=== PATIENT | female | born 1940 | race Caucasian/White ===

== ENCOUNTER 2016-10-29 12:03 | Outpatient (CLI) | payer MEDICARE, OTHER | END 2016-10-29 12:04 | disposition home or self-care (01) | DX: R53.83 Other fatigue (principal); E03.9 Hypothyroidism, unspecified; Z79.899 Other long term (current) drug therapy ==

== ENCOUNTER 2017-01-31 16:18 | Outpatient (CLI) | payer MEDICARE, OTHER | END 2017-01-31 16:19 | disposition home or self-care (01) | DX: M19.071 Primary osteoarthritis, right ankle and foot (principal); M20.11 Hallux valgus (acquired), right foot ==

== ENCOUNTER 2017-05-21 16:40 | Outpatient (CLI) | payer MEDICARE, OTHER ==
[2017-05-21 18:55] LABS: HEMOGLOBIN A1C 0.48 g/dL
== END 2017-05-21 16:41 | disposition home or self-care (01) ==
LOC: LAB.R 16:40
PROVIDERS: ATTEND Internal Medicine
DX: E11.9 Type 2 diabetes mellitus without complications (principal); Z79.899 Other long term (current) drug therapy
CPT/HCPCS: 83036

== ENCOUNTER 2017-06-10 13:55 | Outpatient (CLI) | payer MEDICARE, OTHER ==
[2017-06-10 18:46] LABS: BILIRUBIN,URINE NEGATIVE (NEGATIVE)
== END 2017-06-10 13:56 | disposition home or self-care (01) ==
LOC: LAB.N 13:55
PROVIDERS: ATTEND Internal Medicine
DX: R10.9 Unspecified abdominal pain (principal); R35.0 Frequency of micturition
CPT/HCPCS: 81003

== ENCOUNTER 2017-08-05 08:00 | Outpatient (CLI) | payer MEDICARE, OTHER ==
[2017-08-05 13:54] LABS: BASOPHILS # (AUTO) 0.1 10^3/uL (0.0-0.1); BASOPHILS % (AUTO) 0.9 %; EOSINOPHILS # (AUTO) 0.3 10^3/uL (0.0-0.7); HCT - HEMATOCRIT 33.3 % (37.0-47.0); HGB - HEMOGLOBIN 11.8 g/dL (12.0-16.0); LYMPHOCYTES # (AUTO) 1.9 10^3/uL (1.5-3.5); LYMPHOCYTES % (AUTO) 29.2 %; MEAN CORPUSCULAR HEMOGLOBIN 30.9 pg (27.0-31.0); MEAN CORPUSCULAR HGB CONC 35.3 g/dL (32.0-36.0); MEAN CORPUSCULAR VOLUME 87.6 fL (81.0-99.0); MEAN PLATELET VOLUME 7.6 fL (7.9-10.8); MONOCYTES # (AUTO) 0.5 10^3/uL (0.0-1.0); MONOCYTES % (AUTO) 8.2 %; NEUTROPHILS # (AUTO) 3.7 10^3/uL (1.5-6.6); NEUTROPHILS % (AUTO) 56.7 %; RED BLOOD COUNT 3.81 10^6/uL (4.20-5.40); RED CELL DISTRIBUTION WIDTH 13.2 % (12.0-15.0); UNCORRECTED WHITE BLOOD COUNT 6.4 x10^3/uL; WHITE BLOOD COUNT 6.4 x10^3/uL (4.8-10.8)
[2017-08-05 14:32] LABS: ALBUMIN/GLOBULIN RATIO 1.4 (1.0-2.2); BILIRUBIN,TOTAL 0.4 mg/dL (0.2-1.0); BUN - BLOOD UREA NITROGEN 15 mg/dL (6-20); CALCIUM 9.3 mg/dL (8.5-10.3); CARBON DIOXIDE - CO2 29 mmol/L (21-32); CHLORIDE 92 mmol/L (101-111); CHOL/HDL RATIO 3.4 (<4.4); CHOLESTEROL 175 mg/dL; CREATININE 0.9 mg/dL (0.4-1.0); GFR - MDRD 61 (>89); GLUCOSE 103 mg/dL (70-100); HDL CHOLESTEROL 52 mg/dL; LDL/HDL RATIO 2.1 (<4.4); SODIUM 129 mmol/L (135-145); TOTAL PROTEIN 7.1 g/dL (6.7-8.2); TRIGLYCERIDES 68 mg/dL; VLDL CHOLESTEROL 14 mg/dL
[2017-08-05 14:47] LABS: HEMOGLOBIN A1C 0.38 g/dL
== END 2017-08-05 08:01 | disposition home or self-care (01) ==
LOC: LAB.N 08:00
PROVIDERS: ATTEND Physician Assistant Medical
DX: E11.9 Type 2 diabetes mellitus without complications (principal); D53.9 Nutritional anemia, unspecified; M15.9 Polyosteoarthritis, unspecified; E78.2 Mixed hyperlipidemia; E03.9 Hypothyroidism, unspecified; Z79.899 Other long term (current) drug therapy
CPT/HCPCS: 36415; 80053; 80061; 83036; 84443; 85025

== ENCOUNTER 2017-11-28 13:51 | Outpatient (CLI) | payer MEDICARE, OTHER ==
--- NOTE | 2017-11-29 13:32 | DEXA Report ---
DEXA: 11/28/2017 CLINICAL INDICATION: Postmenopausal. TECHNIQUE: Dual energy x-ray absorptiometry (DXA) was performed on a Deep Driver system. Regions measured are the AP spine, femoral neck, and, if needed, forearm. COMPARISON: None. In accordance with the International Society for Clinical Densitometry (ISCD) guidelines, data from previous exams may be reanalyzed using current recommendations and techniques. This is done to allow a more accurate basis for comparison with the current study. FINDINGS The data for the lumbar spine is as follows: REGION BMD (g/cm/cm) T-SCORE Z-SCORE L1 1.181 0.4 1.5 L2 1.226 0.2 1.3 L3 1.329 1.1 2.1 L4 1.389 1.6 2.6 L1-L4 TOTAL 1.287 0.9 2.0 NOTE: All evaluable vertebrae are used for classification. The data for the right hip is as follows: REGION BMD (g/cm/cm) T-SCORE Z-SCORE Neck 0.588 -3.2 -1.7 TOTAL 0.598 -3.2 -1.9 NOTE: The femoral neck or total proximal femur, whichever is lowest, is used for classification. IMPRESSION 1. THE WHO CLASSIFICATION BASED ON THE INTERNATIONAL REFERENCE STANDARD IS OSTEOPOROSIS. THE FRACTURE RISK IS HIGH. 2. LEFT HIP EVALUATION NOT PERFORMED SECONDARY TO LEFT FEMORAL STEVEN. RECOMMENDATION: Patients with diagnosis of osteoporosis or osteopenia should have regular bone mineral density assessment. For those eligible for Medicare, routine testing is allowed once every 2 years. Testing frequency can be increased for patients who have rapidly progressing disease or for those who are receiving medical therapy to restore bone mass. COMMENT: World Health Organization (WHO) definitions for osteoporosis and osteopenia: NORMAL BMD: T-score at 1.0 or higher, fracture risk is low. OSTEOPENIA BMD: T-score between 1.0 and -2.5, fracture risk is increased. OSTEOPOROSIS BMD: T-score at 2.5 or lower, fracture risk high. National Osteoporosis Foundation recommends: 1. Obtain adequate dietary calcium (at least 1200 mg per day) and vitamin D (400 -800 international units per day). 2. Participate, as appropriate, in regular weightbearing and muscle- strengthening exercise. 3. Avoid tobacco use and reduce alcohol and caffeine intake. 4. For more detailed information see the website at www.NOF.org. TD: 11/28/2017 18:36 MTDDoreen
== END 2017-11-28 13:52 | disposition home or self-care (01) ==
LOC: DI 13:51
PROVIDERS: ATTEND Physician Assistant Medical
DX: M81.0 Age-related osteoporosis without current pathological fracture (principal)
CPT/HCPCS: 77080

== ENCOUNTER 2017-12-10 18:08 | Emergency (ER) | payer MEDICARE, OTHER ==
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
[2017-12-10] MEDS ORDERED: ACETAMINOPHEN 325 MG TABLET PO STA (18:54)
--- NOTE | 2017-12-10 20:09 | CT Preliminary Report ---
Exam: CT HEAD W/O IMPRESSION: Generalized age-related cortical atrophic changes without evidence of acute intracranial abnormality. [facility] SITE ID: [id number]
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
[2017-12-10 20:33] VITALS: BP 106/56
== END 2017-12-10 20:35 | disposition home or self-care (01) ==
LOC: ED 18:08
DX: S00.03XA Contusion of scalp, initial encounter (principal); W19.XXXA Unspecified fall, initial encounter; I25.10 Atherosclerotic heart disease of native coronary artery without angina pectoris; I25.2 Old myocardial infarction; I10 Essential (primary) hypertension; E11.9 Type 2 diabetes mellitus without complications; Z95.1 Presence of aortocoronary bypass graft; Z95.5 Presence of coronary angioplasty implant and graft
CPT/HCPCS: 70450; 99283

== ENCOUNTER 2017-12-23 15:06 | Outpatient (CLI) | payer MEDICARE, OTHER ==
[2017-12-23 18:33] LABS: BASOPHILS # (AUTO) 0.1 10^3/uL (0.0-0.1); EOSINOPHILS # (AUTO) 0.2 10^3/uL (0.0-0.7); HGB - HEMOGLOBIN 11.8 g/dL (12.0-16.0); LYMPHOCYTES % (AUTO) 30.7 %; MEAN CORPUSCULAR HEMOGLOBIN 29.7 pg (27.0-31.0); MEAN CORPUSCULAR HGB CONC 33.8 g/dL (32.0-36.0); MEAN CORPUSCULAR VOLUME 87.8 fL (81.0-99.0); MEAN PLATELET VOLUME 7.9 fL (7.9-10.8); MONOCYTES # (AUTO) 0.5 10^3/uL (0.0-1.0); MONOCYTES % (AUTO) 7.6 %; NEUTROPHILS # (AUTO) 3.8 10^3/uL (1.5-6.6); NEUTROPHILS % (AUTO) 57.7 %; PLT - PLATELET COUNT 293 10^3/uL (130-450); RED BLOOD COUNT 3.99 10^6/uL (4.20-5.40); RED CELL DISTRIBUTION WIDTH 12.9 % (12.0-15.0); WHITE BLOOD COUNT 6.6 x10^3/uL (4.8-10.8)
[2017-12-23 18:43] LABS: ALBUMIN 3.9 g/dL (3.2-5.5); ALBUMIN/GLOBULIN RATIO 1.2 (1.0-2.2); BILIRUBIN,TOTAL 0.5 mg/dL (0.2-1.0); CALCIUM 9.1 mg/dL (8.5-10.3); CREATININE 0.9 mg/dL (0.4-1.0); TOTAL PROTEIN 7.2 g/dL (6.7-8.2)
[2017-12-23 19:01] LABS: THYROID STIMULATING HORMONE 2.57 uIU/mL (0.34-5.60)
[2017-12-23 19:04] LABS: HB2 TOTAL 12.5 g/dL; HEMOGLOBIN A1C 0.39 g/dL
[2017-12-23 19:07] LABS: FERRITIN 84.2 ng/mL (11.0-306.8)
== END 2017-12-23 15:07 | disposition home or self-care (01) ==
LOC: LAB.R 15:06
PROVIDERS: ATTEND Physician Assistant Medical
DX: E11.9 Type 2 diabetes mellitus without complications (principal); D53.9 Nutritional anemia, unspecified; R41.89 Other symptoms and signs involving cognitive functions and awareness; L65.9 Nonscarring hair loss, unspecified; Z79.899 Other long term (current) drug therapy
CPT/HCPCS: 80053; 82607; 82728; 83036; 84443; 85025

== ENCOUNTER 2018-03-04 11:23 | Outpatient (CLI) | payer MEDICARE, OTHER ==
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
== END 2018-03-04 11:24 | disposition home or self-care (01) ==
LOC: DI 11:23
PROVIDERS: ATTEND Internal Medicine
DX: R05 Cough (principal)
CPT/HCPCS: 71046

== ENCOUNTER 2018-03-24 08:00 | Outpatient (CLI) | payer MEDICARE, OTHER ==
[2018-03-24 13:06] LABS: ALBUMIN 3.7 g/dL (3.2-5.5); ALBUMIN/GLOBULIN RATIO 1.2 (1.0-2.2); BILIRUBIN,TOTAL 0.4 mg/dL (0.2-1.0); CALCIUM 8.8 mg/dL (8.5-10.3); CREATININE 0.9 mg/dL (0.4-1.0); TOTAL PROTEIN 6.8 g/dL (6.7-8.2)
== END 2018-03-24 08:01 | disposition home or self-care (01) ==
LOC: LAB.R 08:00
PROVIDERS: ATTEND Physician Assistant Medical
DX: E87.1 Hypo-osmolality and hyponatremia (principal)
CPT/HCPCS: 80053

== ENCOUNTER 2018-04-03 16:02 | Outpatient (CLI) | payer MEDICARE, OTHER ==
[2018-04-03 12:53] LABS: CALCIUM 8.9 mg/dL (8.5-10.3); CREATININE 0.9 mg/dL (0.4-1.0)
== END 2018-04-03 23:59 | disposition home or self-care (01) ==
LOC: LAB.N 16:02
PROVIDERS: ATTEND Physician Assistant Medical
DX: E87.1 Hypo-osmolality and hyponatremia (principal)
CPT/HCPCS: 36415; 80048

== ENCOUNTER 2018-07-02 18:38 | Outpatient (CLI) | payer MEDICARE, OTHER | END 2018-07-02 18:39 | disposition short-term general hospital (02) | LOC: EMS 18:38 | PROVIDERS: ATTEND Surgery | DX: Z74.01 Bed confinement status (principal); Z74.2 Need for assistance at home and no other household member able to render care | CPT/HCPCS: A0425; A0429 ==

== ENCOUNTER 2018-09-12 09:16 | Outpatient (CLI) | payer MEDICARE, OTHER ==
[2018-09-12 13:30] LABS: HB2 TOTAL 13.6 g/dL; HEMOGLOBIN A1C 0.47 g/dL; HEMOGLOBIN A1C % 5.3 % (4.6-6.2)
[2018-09-12 13:35] LABS: ALBUMIN/GLOBULIN RATIO 1.1 (1.0-2.2); ALKALINE PHOSPHATASE 66 IU/L (42-121); ALT ALANINE AMINOTRANSFERASE 15 IU/L (10-60); AST ASPARTATE AMINOTRANSFERASE 21 IU/L (10-42); BILIRUBIN,TOTAL 0.6 mg/dL (0.2-1.0); BUN - BLOOD UREA NITROGEN 11 mg/dL (6-20); CALCIUM 9.6 mg/dL (8.5-10.3); CARBON DIOXIDE - CO2 30 mmol/L (21-32); CHLORIDE 98 mmol/L (101-111); CHOL/HDL RATIO 3.5 (<4.4); CHOLESTEROL 172 mg/dL; CREATININE 0.9 mg/dL (0.4-1.0); GFR - MDRD 61 (>89); GLUCOSE 107 mg/dL (70-100); HDL CHOLESTEROL 49 mg/dL; LDL CHOLESTEROL,CALCULATED 110 mg/dL; LDL/HDL RATIO 2.2 (<4.4); SODIUM 137 mmol/L (135-145); TOTAL PROTEIN 7.5 g/dL (6.7-8.2); VLDL CHOLESTEROL 13 mg/dL
[2018-09-12 13:38] LABS: BASOPHILS % (AUTO) 0.4 %; EOSINOPHILS # (AUTO) 0.2 10^3/uL (0.0-0.7); EOSINOPHILS % (AUTO) 4.1 %; HGB - HEMOGLOBIN 12.7 g/dL (12.0-16.0); LYMPHOCYTES # (AUTO) 2.3 10^3/uL (1.5-3.5); LYMPHOCYTES % (AUTO) 38.9 %; MEAN CORPUSCULAR HEMOGLOBIN 30.7 pg (27.0-31.0); MEAN CORPUSCULAR HGB CONC 35.1 g/dL (32.0-36.0); MEAN CORPUSCULAR VOLUME 87.5 fL (81.0-99.0); MEAN PLATELET VOLUME 7.8 fL (7.9-10.8); MONOCYTES # (AUTO) 0.4 10^3/uL (0.0-1.0); MONOCYTES % (AUTO) 7.3 %; NEUTROPHILS # (AUTO) 2.9 10^3/uL (1.5-6.6); NEUTROPHILS % (AUTO) 49.3 %; PLT - PLATELET COUNT 290 10^3/uL (130-450); RED BLOOD COUNT 4.14 10^6/uL (4.20-5.40); RED CELL DISTRIBUTION WIDTH 13.2 % (12.0-15.0); WHITE BLOOD COUNT 5.8 x10^3/uL (4.8-10.8)
== END 2018-09-12 09:17 | disposition home or self-care (01) ==
LOC: LAB.N 09:16
PROVIDERS: ATTEND Physician Assistant Medical
DX: M81.0 Age-related osteoporosis without current pathological fracture (principal); Z79.899 Other long term (current) drug therapy; E03.9 Hypothyroidism, unspecified; E78.2 Mixed hyperlipidemia; E11.9 Type 2 diabetes mellitus without complications; D53.9 Nutritional anemia, unspecified; F41.8 Other specified anxiety disorders
CPT/HCPCS: 36415; 80053; 80061; 82306; 83036; 83721; 84443; 85025

== ENCOUNTER 2018-10-27 14:34 | Outpatient (CLI) | payer OTHER, MEDICARE | END 2018-10-27 14:35 | disposition critical access hospital (66) | LOC: EMS 14:34 | PROVIDERS: ATTEND Surgery | DX: T14.90XA Injury, unspecified, initial encounter (principal); V43.93XA Unspecified car occupant injured in collision with pick-up truck in traffic accident, initial encounter; Y92.413 State road as the place of occurrence of the external cause | CPT/HCPCS: A0425; A0429 ==

== ENCOUNTER 2018-10-27 14:45 | Emergency (ER) | payer OTHER, MEDICARE ==
[2018-10-27] MEDS ORDERED: MORPHINE 2 MG/ML CARPUJECT IVP STA ×2 (15:03→16:29)
[2018-10-27] MEDS ORDERED: SODIUM CHLORIDE 0.9% 1,000 ML IV ONE (15:03)
[2018-10-27] MEDS ORDERED: ONDANSETRON 4 MG/2 ML VIAL IVP STA ×2 (15:03→16:35)
[2018-10-27 15:11] LABS: BASOPHILS # (AUTO) 0.1 10^3/uL (0.0-0.1); BASOPHILS % (AUTO) 0.9 %; EOSINOPHILS # (AUTO) 0.4 10^3/uL (0.0-0.7); EOSINOPHILS % (AUTO) 5.4 %; HGB - HEMOGLOBIN 12.9 g/dL (12.0-16.0); LYMPHOCYTES # (AUTO) 2.4 10^3/uL (1.5-3.5); MEAN CORPUSCULAR HEMOGLOBIN 30.7 pg (27.0-31.0); MEAN CORPUSCULAR HGB CONC 35.2 g/dL (32.0-36.0); MEAN CORPUSCULAR VOLUME 87.3 fL (81.0-99.0); MEAN PLATELET VOLUME 7.3 fL (7.9-10.8); MONOCYTES # (AUTO) 0.4 10^3/uL (0.0-1.0); MONOCYTES % (AUTO) 6.4 %; NEUTROPHILS # (AUTO) 3.6 10^3/uL (1.5-6.6); NEUTROPHILS % (AUTO) 52.3 %; PLT - PLATELET COUNT 263 10^3/uL (130-450); RED BLOOD COUNT 4.22 10^6/uL (4.20-5.40); RED CELL DISTRIBUTION WIDTH 12.9 % (12.0-15.0)
[2018-10-27 15:18] LABS: ALBUMIN 4.1 g/dL (3.2-5.5); ALBUMIN/GLOBULIN RATIO 1.2 (1.0-2.2); BILIRUBIN,TOTAL 0.4 mg/dL (0.2-1.0); CREATININE 0.9 mg/dL (0.4-1.0); TOTAL PROTEIN 7.4 g/dL (6.7-8.2)
[2018-10-27 15:22] LABS: INR 1.2 (0.8-1.2); PT - PROTHROMBIN TIME 13.1 secs (9.9-12.6)
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
[2018-10-27] MEDS ORDERED: TRANEXAMIC ACID 1,000 MG in SODIUM CHLORIDE 0.9% 100ML 100 ML IV STA (16:12)
[2018-10-27] MEDS ORDERED: ACETAMINOPHEN 1,000 MG/100 ML 100 ML IV STA (16:29)
[2018-10-27 17:18] VITALS: BP 122/68
[2018-10-27 17:30] LABS: BILIRUBIN,URINE NEGATIVE (NEGATIVE); GLUCOSE, URINE (UA) NEGATIVE (NEGATIVE); KETONES,URINE (UA) NEGATIVE (NEGATIVE); LEUKOCYTE ESTERASE, URINE NEGATIVE (NEGATIVE); NITRITE,URINE NEGATIVE (NEGATIVE); OCCULT BLOOD,URINE NEGATIVE (NEGATIVE); PROTEIN,URINE NEGATIVE (NEGATIVE); UROBILINOGEN,URINE 0.2 (NORMAL) E.U./dL (NORMAL)
[2018-10-27 17:31] LABS: CLARITY,URINE CLEAR (CLEAR)
== END 2018-10-27 17:10 | disposition short-term general hospital (02) ==
LOC: EDUNIT# → ED 14:45
DX: S27.892A Contusion of other specified intrathoracic organs, initial encounter (principal); S80.01XA Contusion of right knee, initial encounter; V43.62XA Car passenger injured in collision with other type car in traffic accident, initial encounter; R09.02 Hypoxemia; I45.10 Unspecified right bundle-branch block; I49.3 Ventricular premature depolarization; I10 Essential (primary) hypertension; I25.10 Atherosclerotic heart disease of native coronary artery without angina pectoris; I25.2 Old myocardial infarction; E11.9 Type 2 diabetes mellitus without complications; Z95.1 Presence of aortocoronary bypass graft; Z95.5 Presence of coronary angioplasty implant and graft; Z79.02 Long term (current) use of antithrombotics/antiplatelets
CPT/HCPCS: 36415; 51702; 70450; 71250; 72125; 74176; 80053; 81003; 83690; 84484; 85025; 85610; 85730; 86850; 86900; 86901; 93005; 96365; 96368; 96375; 96376; 99284; 99285; J0131; 81001; 87086

== ENCOUNTER 2019-01-01 20:31 | Outpatient (CLI) | payer MEDICARE, OTHER | END 2019-01-01 20:32 | disposition critical access hospital (66) | LOC: EMS 20:31 | PROVIDERS: ATTEND Surgery | DX: R51 Headache (principal); W06.XXXA Fall from bed, initial encounter; Y92.003 Bedroom of unspecified non-institutional (private) residence as the place of occurrence of the external cause | CPT/HCPCS: A0425; A0429 ==

== ENCOUNTER 2019-01-01 20:58 | Emergency (ER) | payer MEDICARE, OTHER ==
--- NOTE | 2019-01-01 21:13 | ED Physician Documentation ---
PD HPI HEAD INJURY - Stated complaint Stated Complaint: GLF- HIT HEAD - Chief complaint Chief Complaint: Trauma Hd/Nk - History obtained from History obtained from: Patient, Family, EMS - History of Present Illness Mechanism of head injury: Fell Where head injury occurred: Home Timing - onset: Today Location of injury: Right Quality of pain: Other (none) Associated symptoms: No: LOC, AMS, Amnesia, Nausea / vomiting, Neck pain, Paresthesias, Seizures, Ear drainage, Nasal drainage Symptoms improve with: Rest Symptoms worsen with: Palpation Contributing factors: Anticoagulated (plavix) Similar symptoms before: Has not had sx before Recently seen: Admitted - Additional information Additional information: 78-year-old female was at home got up to use her wheeled walker and bumped into the door on her way into the bedroom lock the brakes and when she attempted to move the walker she fell to the side and struck the right side of her head. She did not have any loss of consciousness she denies any neck pain she denies any specific symptoms. She is on Plavix and her called 911to have her transported to hospital for evaluation. The patient states that she has been sick with a cough and congestion this past week that is now improved and her symptoms are nearly resolved. Review of Systems Constitutional: denies: Fever, Chills Eyes: denies: Decreased vision Ears: denies: Ear pain Nose: reports: Rhinorrhea / runny nose, Congestion Throat: denies: Sore throat Cardiac: denies: Chest pain / pressure, Palpitations Respiratory: reports: Cough. denies: Dyspnea GI: denies: Nausea, Vomiting : denies: Dysuria, Frequency Skin: denies: Rash Musculoskeletal: denies: Neck pain, Back pain, Extremity pain Neurologic: reports: Head injury. denies: Generalized weakness, Focal weakness, Numbness, Difficulty speaking, Near syncope, Syncope, Seizure, Confused, Altered mental status, Headache, LOC PD PAST MEDICAL HISTORY - Past Medical History Cardiovascular: Hypertension, Coronary artery disease, [place] Respiratory: None Neuro: None Endocrine/Autoimmune: Type 2 diabetes GI: None VOCATIONAL SERVICES SPECIALIST: None : None HEENT: None Psych: Anxiety Musculoskeletal: None Derm: None - Past Surgical History Past Surgical History: Yes General: Appendectomy Ortho: Other Cardiovascular: CABG, Coronary stent - Present Medications Home Medications: Ambulatory Orders Medication Instructions Recorded Confirmed Amlodipine Besylate [Norvasc] 10 mg PO DAILY 02/24/16 02/24/16 Atenolol 25 mg PO BID 02/24/16 02/24/16 Cetirizine [ZyrTEC] 10 mg PO DAILY 02/24/16 02/24/16 Clopidogrel [Plavix] 75 mg PO DAILY 02/24/16 02/24/16 Furosemide [Lasix] 40 mg PO DAILY 02/24/16 02/24/16 Isosorbide Mononitrate ER [Imdur] 60 mg PO DAILY 02/24/16 10/27/18 Levothyroxine [Synthroid] 100 mcg PO DAILY 02/24/16 10/27/18 Morphine Sulfate [Ms Contin] 60 mg PO DAILY 02/24/16 02/24/16 Pantoprazole [Protonix] 40 mg PO DAILY 02/24/16 10/27/18 Paroxetine HCl [Paxil] 40 mg PO DAILY 02/24/16 10/27/18 Potassium Chloride 20 meq PO DAILY 02/24/16 02/24/16 Pravastatin [Pravachol] 10 mg PO DAILY 02/24/16 02/24/16 diazePAM [Diazepam] 5 mg PO DAILY 02/24/16 02/24/16 - Allergies Allergies/Adverse Reactions: Allergies Allergy/AdvReac Type Severity Reaction Status Date / Time aspirin Allergy Unknown Verified 01/01/19 21:12 cephalexin monohydrate * Allergy Unknown Verified 01/01/19 21:12 [From Keflex] codeine Allergy Unknown Verified 01/01/19 21:12 diphenhydramine HCl * Allergy Unknown Verified 01/01/19 21:12 [From Benadryl] duloxetine HCl * Allergy Unknown Verified 01/01/19 21:12 [From Cymbalta] ibuprofen Allergy Unknown Verified 01/01/19 21:12 naproxen [From Naprosyn] Allergy Unknown Verified 01/01/19 21:12 nitrofurantoin Allergy Unknown Verified 01/01/19 21:12 macrocrystalline * [From Macrodantin] Penicillins Allergy Unknown Verified 01/01/19 21:12 povidone-iodine Allergy Unknown Verified 01/01/19 21:12 [From Betadine] soap [From Betadine] Allergy Unknown Verified 01/01/19 21:12 sulfite Allergy Unknown Verified 01/01/19 21:12 contrast dye Allergy Unknown Uncoded 01/01/19 21:12 - Social History Does the pt smoke?: No Smoking Status: Never smoker Does the pt drink ETOH?: No Does the pt have substance abuse?: No - Immunizations Immunizations are current?: No Immunizations: TDAP >10years/unknown - POLST Patient has POLST: No PD ED PE NORMAL - Vitals Vital signs reviewed: Yes (hypertensive mild diastolic ) - General General: Alert and oriented X 3, No acute distress, Well developed/nourished - HEENT HEENT: Atraumatic, PERRL, EOMI, Ears normal, Moist mucous membranes, Pharynx benign, Dentition benign, Other (There is a non-tender bump on the right paraietal/frontal area ) - Cardiac Cardiac: RRR, No murmur - Respiratory Respiratory: No respiratory distress, Clear bilaterally - Abdomen Abdomen: Soft, Non tender - Back Back: No CVA TTP, No spinal TTP - Derm Derm: Normal color, Warm and dry, No rash - Extremities Extremities: No deformity, No edema - Neuro Neuro: Alert and oriented X 3, recruiter account manager 2-12 intact, No motor deficit, No sensory deficit, Normal speech Eye Opening: Spontaneous Motor: Obeys Commands Verbal: Oriented GCS Score: 15 - Psych Psych: Normal mood, Normal affect Results - Vitals Vitals: Vital Signs - 24 hr 01/01/19 01/01/19 20:59 22:11 Temperature 36.8 C Heart Rate 70 57 L Respiratory 18 18 Rate Blood Pressure 113/96 H 107/57 L O2 Saturation 95 97 Oxygen O2 Source Room air - Rads (name of study) CT head without Radiology: Prelim report reviewed (Impression: Generalized age-related cortical atrophic changes without evidence of acute intracranial abnormality.), EMP read indepedently, See rad report PD MEDICAL DECISION MAKING - ED course Complexity details: reviewed results, re-evaluated patient, considered differential, d/w patient, d/w family ED course: 78-year-old female on Plavix has fallen in her home a mechanical fall with malpositioning of her walker this was witnessed by her she did not have a syncopal episode or lose consciousness. CT scan of her head is obtained without evidence of hemorrhage. Patient is discharged to home. Departure - Departure Disposition: 01 Home, Self Care Clinical Impression: Scalp contusion Qualifiers: Encounter type: initial encounter Qualified Code(s): S00.03XA - Contusion of scalp, initial encounter Instructions: ED Head Injury Closed Follow-Up: Javon Metzger MD [Primary Care Provider] -
--- NOTE | 2019-01-01 21:47 | CT Report ---
Reason: fall head injury anticoagulation Procedure Date: 01/01/2019 Accession Number: [id number] / [id number] Procedure: CT - HEAD WO CPT Code: FULL RESULT: EXAM: CT HEAD EXAM DATE: 01/01/2019 09:30 PM. CLINICAL HISTORY: Fall head injury anticoagulation. COMPARISON: CERVICAL SPINE W/O 10/27/2018 3:05 PM HEAD W/O 10/27/2018 3:05 PM. TECHNIQUE: Multiaxial CT images were obtained from the foramen magnum to the vertex. Reformats: Sagittal and coronal. IV contrast: None. In accordance with CT protocol optimization, one or more of the following dose reduction techniques were utilized for this exam: automated exposure control, adjustment of mA and/or KV based on patient size, or use of iterative reconstructive technique. FINDINGS: Parenchyma: No intraparenchymal hemorrhage. No evidence of mass, midline shift, or CT findings of acute infarction. Andrade-white differentiation is distinct. Diffuse chronic microangiopathic white matter changes are evident. Extraaxial Spaces: Normal for age. No subdural or epidural collections identified. Ventricles: The ventricles and cortical sulci are enlarged, consistent with age-related tissue loss. Sinuses and orbits: Imaged paranasal sinuses, orbits, and mastoids show no significant abnormality. Bones: No evidence of fracture or calvarial defect. Other: None. IMPRESSION: Generalized age-related cortical atrophic changes without evidence of acute intracranial abnormality. RADIA
[2019-01-01 22:12] VITALS: BP 107/57
== END 2019-01-01 22:26 | disposition home or self-care (01) ==
LOC: EDUNIT# → ED 20:58
DX: S00.03XA Contusion of scalp, initial encounter (principal); W18.30XA Fall on same level, unspecified, initial encounter; W22.8XXA Striking against or struck by other objects, initial encounter; Y92.009 Unspecified place in unspecified non-institutional (private) residence as the place of occurrence of the external cause; I10 Essential (primary) hypertension; I25.10 Atherosclerotic heart disease of native coronary artery without angina pectoris; I25.2 Old myocardial infarction; E11.9 Type 2 diabetes mellitus without complications; Z95.1 Presence of aortocoronary bypass graft; Z95.5 Presence of coronary angioplasty implant and graft
CPT/HCPCS: 70450; 99283

== ENCOUNTER 2020-11-13 17:59 | Outpatient (CLI) | payer MEDICARE, OTHER | END 2020-11-13 18:00 | disposition EMS.NT | LOC: EMS 17:59 | PROVIDERS: ATTEND Surgery | DX: K59.00 Constipation, unspecified (principal) ==

== ENCOUNTER 2021-07-07 11:59 | Emergency (ER) | payer MEDICARE, OTHER ==
--- NOTE | 2021-07-07 12:23 | ED Physician Documentation ---
PD HPI NVD - Stated complaint Stated Complaint: N/V/POSSIBLE WITHDRAWL - History obtained from History obtained from: Patient PD PAST MEDICAL HISTORY - Past Medical History Cardiovascular: Hypertension, Coronary artery disease, [place] Respiratory: None Neuro: None Endocrine/Autoimmune: Type 2 diabetes GI: None PROGRAM SUPPORT CLERK: None : None HEENT: None Psych: Anxiety Musculoskeletal: None Derm: None - Past Surgical History Past Surgical History: Yes General: Appendectomy Ortho: Other Cardiovascular: CABG, Coronary stent - Present Medications Home Medications: Ambulatory Orders Medication Instructions Recorded Confirmed Amlodipine Besylate [Norvasc] 10 mg PO DAILY 02/24/16 02/24/16 Cetirizine [ZyrTEC] 10 mg PO DAILY 02/24/16 02/24/16 Clopidogrel [Plavix] 75 mg PO DAILY 02/24/16 02/24/16 Furosemide [Lasix] 40 mg PO DAILY 02/24/16 02/24/16 Isosorbide Mononitrate ER [Imdur] 60 mg PO DAILY 02/24/16 10/27/18 Levothyroxine [Synthroid] 100 mcg PO DAILY 02/24/16 10/27/18 Morphine Sulfate [Ms Contin] 60 mg PO DAILY 02/24/16 02/24/16 PARoxetine HCl [Paxil] 40 mg PO DAILY 02/24/16 10/27/18 Pantoprazole [Protonix] 40 mg PO DAILY 02/24/16 10/27/18 Potassium Chloride 20 meq PO DAILY 02/24/16 02/24/16 Pravastatin [Pravachol] 10 mg PO DAILY 02/24/16 02/24/16 atenoloL [Atenolol] 25 mg PO BID 02/24/16 02/24/16 diazePAM [Diazepam] 5 mg PO DAILY 02/24/16 02/24/16 - Allergies Allergies/Adverse Reactions: Allergies Allergy/AdvReac Type Severity Reaction Status Date / Time aspirin Allergy Unknown Verified 01/01/19 21:12 cephalexin monohydrate * Allergy Unknown Verified 01/01/19 21:12 [From Keflex] codeine Allergy Unknown Verified 01/01/19 21:12 diphenhydramine HCl * Allergy Unknown Verified 01/01/19 21:12 [From Benadryl] duloxetine HCl * Allergy Unknown Verified 01/01/19 21:12 [From Cymbalta] ibuprofen Allergy Unknown Verified 01/01/19 21:12 naproxen [From Naprosyn] Allergy Unknown Verified 01/01/19 21:12 nitrofurantoin Allergy Unknown Verified 01/01/19 21:12 macrocrystalline * [From Macrodantin] Penicillins Allergy Unknown Verified 01/01/19 21:12 povidone-iodine Allergy Unknown Verified 01/01/19 21:12 [From Betadine] soap [From Betadine] Allergy Unknown Verified 01/01/19 21:12 sulfite Allergy Unknown Verified 01/01/19 21:12 contrast dye Allergy Unknown Uncoded 01/01/19 21:12 - Social History Does the pt smoke?: No Smoking Status: Never smoker Does the pt drink ETOH?: No Does the pt have substance abuse?: No - Immunizations Immunizations are current?: No Immunizations: TDAP >10years/unknown - POLST Patient has POLST: No Results - Vitals Vitals: Oxygen O2 Source Room air
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
[2021-07-07] MEDS ORDERED: MORPHINE ER 15 MG TABLET PO STA (12:46)
[2021-07-07 13:50] VITALS: BP 171/91
== END 2021-07-07 13:25 | disposition home or self-care (01) ==
LOC: ED 11:59
DX: F11.23 Opioid dependence with withdrawal (principal); R11.2 Nausea with vomiting, unspecified; T40.2X5A Adverse effect of other opioids, initial encounter
CPT/HCPCS: 99281; 99282; A9270

== ENCOUNTER 2021-08-14 22:41 | Outpatient (CLI) | payer MEDICARE, OTHER | END 2021-08-14 22:42 | disposition EMS.NT | LOC: EMS 22:41 | DX: Z03.89 Encounter for observation for other suspected diseases and conditions ruled out (principal) ==

== ENCOUNTER 2021-09-06 10:42 | Outpatient (CLI) | payer MEDICARE, OTHER | END 2021-09-06 10:43 | disposition short-term general hospital (02) | LOC: EMS 10:42 | PROVIDERS: ATTEND Emergency Medicine | DX: R60.0 Localized edema (principal) | CPT/HCPCS: A0425; A0429 ==

== ENCOUNTER 2021-09-23 08:00 | Outpatient (CLI) | payer MEDICARE, OTHER ==
[2021-09-23 22:46] LABS: BILIRUBIN,URINE NEGATIVE (NEGATIVE); GLUCOSE, URINE (UA) NEGATIVE (NEGATIVE); KETONES,URINE (UA) NEGATIVE (NEGATIVE); LEUKOCYTE ESTERASE, URINE LARGE (NEGATIVE); NITRITE,URINE NEGATIVE (NEGATIVE); OCCULT BLOOD,URINE MODERATE (NEGATIVE); PH,URINE 6.5 PH (5.0-7.5); PROTEIN,URINE TRACE mg/dL (NEGATIVE); UROBILINOGEN,URINE 0.2 (NORMAL) E.U./dL (NORMAL)
[2021-09-23 22:54] LABS: CLARITY,URINE CLOUDY (CLEAR)
[2021-09-23 22:58] LABS: BACTERIA,URINE Many /HPF (None Seen); SQUAMOUS EPITHELIAL CELL,UR FEW Squamous (<= Few); WBC,URINE >25 /HPF (0-5)
== END 2021-09-23 23:59 | disposition home or self-care (01) ==
LOC: LAB 08:00
PROVIDERS: ATTEND Family Medicine
DX: N39.0 Urinary tract infection, site not specified (principal)
CPT/HCPCS: 81001; 81003

== ENCOUNTER 2021-09-26 08:00 | Outpatient (CLI) | payer MEDICARE, OTHER ==
[2021-09-26 22:23] LABS: BILIRUBIN,URINE NEGATIVE (NEGATIVE); GLUCOSE, URINE (UA) NEGATIVE (NEGATIVE); KETONES,URINE (UA) NEGATIVE (NEGATIVE); LEUKOCYTE ESTERASE, URINE LARGE (NEGATIVE); NITRITE,URINE NEGATIVE (NEGATIVE); OCCULT BLOOD,URINE LARGE (NEGATIVE); PROTEIN,URINE 30 mg/dL (NEGATIVE); UROBILINOGEN,URINE 0.2 (NORMAL) E.U./dL (NORMAL)
[2021-09-26 22:30] LABS: BACTERIA,URINE Moderate /HPF (None Seen); CLARITY,URINE HAZY (CLEAR); SQUAMOUS EPITHELIAL CELL,UR FEW Squamous (<= Few); WBC,URINE >25 /HPF (0-5)
== END 2021-09-26 23:59 ==
LOC: LAB.R 08:00
PROVIDERS: ATTEND Family Medicine
DX: N39.0 Urinary tract infection, site not specified (principal)
CPT/HCPCS: 81001; 87077; 87086; 87181

== ENCOUNTER 2021-10-06 13:40 | Outpatient (CLI) | payer MEDICARE, OTHER ==
[2021-10-06 17:25] LABS: BILIRUBIN,URINE NEGATIVE (NEGATIVE); GLUCOSE, URINE (UA) NEGATIVE (NEGATIVE); KETONES,URINE (UA) NEGATIVE (NEGATIVE); LEUKOCYTE ESTERASE, URINE MODERATE (NEGATIVE); NITRITE,URINE POSITIVE (NEGATIVE); OCCULT BLOOD,URINE LARGE (NEGATIVE); PH,URINE 6.5 PH (5.0-7.5); PROTEIN,URINE 30 mg/dL (NEGATIVE); UROBILINOGEN,URINE 0.2 (NORMAL) E.U./dL (NORMAL)
[2021-10-06 17:33] LABS: BACTERIA,URINE Many /HPF (None Seen); CLARITY,URINE HAZY (CLEAR); SQUAMOUS EPITHELIAL CELL,UR FEW Squamous (<= Few); WBC,URINE >25 /HPF (0-5)
== END 2021-10-06 23:59 | disposition home or self-care (01) ==
LOC: LAB.R 13:40
DX: N39.0 Urinary tract infection, site not specified (principal)
CPT/HCPCS: 81001; 81003; 87077; 87086; 87181

== ENCOUNTER 2021-11-02 17:15 | Outpatient (CLI) | payer MEDICARE, OTHER | END 2021-11-02 23:59 | disposition EMS.NT | LOC: EMS 17:15 | DX: R53.1 Weakness (principal) ==

== ENCOUNTER 2021-11-06 10:16 | Outpatient (CLI) | payer MEDICARE, OTHER | END 2021-11-06 10:17 | disposition short-term general hospital (02) | LOC: EMS 10:16 | DX: R11.2 Nausea with vomiting, unspecified (principal); R19.7 Diarrhea, unspecified; R53.1 Weakness | CPT/HCPCS: A0425; A0427 ==